=== PATIENT | male | born 1960 | race Caucasian/White ===

== ENCOUNTER 2017-06-14 08:13 | Emergency (ER) | payer MEDICARE, MEDICAID ==
[2017-06-14] MEDS ORDERED: Sodium Chloride 0.9% 500 ML IV ONE (08:45)
[2017-06-14] MEDS ORDERED: Sodium Chloride 0.9% 10 ML Syringe FLUSH PRN (08:46)
[2017-06-14] MEDS ORDERED: Labetalol 100 MG/20 ML MDV IVPUSH ONE ×3 (08:46→11:03)
[2017-06-14] MEDS ORDERED: Ondansetron 4 MG/2 ML SDV IVPUSH ONE (09:08)
[2017-06-14] MEDS ORDERED: Morphine 2 MG/ML Syringe IVPUSH ONE (09:08)
[2017-06-14] MEDS ORDERED: LORazepam 2 MG/ML MDV IVPUSH ONE (09:20)
--- NOTE | 2017-06-14 09:20 | EDM.PDOC ---
ED HPI GENERAL MEDICAL PROBLEM - General Chief Complaint: Abdominal Pain Stated Complaint: BODY ACHES Time Seen by Provider: 06/14/17 08:35 Source of Information: Reports: Patient, RN Notes Reviewed - History of Present Illness INITIAL COMMENTS - FREE TEXT/NARRATIVE: 56-year-old male comes in with generalized achiness, nausea, vomiting. He states there was a small amount of blood with his first emesis this morning and then more with the next 2 emesis. He states she's been taking a lot of Excedrin for the past couple of weeks, a couple of tabs about 4 times a day for generalized achiness. He was coughing a lot a couple of weeks ago when he first became ill. The cough now has become much less. The achiness continues. He does feel weak dizzy lightheaded. Does have history of borderline hypertension, not on medication for that. Smoke. Drinking occasional alcohol, "about twice a week ". Generalized Pain Score (Numeric/FACES): 10 - Related Data Allergies Allergy/AdvReac Type Severity Reaction Status Date / Time No Known Allergies Allergy Verified 06/14/17 08:26 Home Meds: Home Meds Ondansetron [Zofran ODT] 4 mg PO Q6H PRN #7 tab.dis 06/14/17 [Rx] QUEtiapine [SEROquel] 100 mg pe PO BID 06/14/17 [History] QUEtiapine [SEROquel] 200 mg PO QPM 06/14/17 [History] Past Medical History HEENT History: Reports: Impaired Vision Cardiovascular History: Reports: Hypertension - Past Surgical History HEENT Surgical History: Reports: Tonsillectomy Social & Family History - Tobacco Use Smoking Status *Q: Current Every Day Smoker Years of Tobacco use: 30 Packs/Tins Daily: 0.5 - Caffeine Use Caffeine Use: Reports: Coffee - Recreational Drug Use Recreational Drug Use: Yes Drug Use in Last 12 Months: Yes Recreational Drug Type: Reports: Marijuana/Hashish Recreational Drug Use Frequency: Binges ED ROS GENERAL - Review of Systems Review Of Systems: See Below Constitutional: Denies: Fever, Chills HEENT: Reports: Rhinitis, Sinus Problem, Throat Pain (No better) Respiratory: Denies: Shortness of Breath (Nasal and sinus congestion), Pleuritic Chest Pain Cardiovascular: Denies: Chest Pain GI/Abdominal: Reports: Abdominal Pain, Hematemesis (This morning), Nausea (Mild generalized achiness), Vomiting Musculoskeletal: Reports: Other (Generalized achiness) Skin: Denies: Rash Neurological: Reports: No Symptoms, Dizziness, Headache (Mild). Denies: Trouble Speaking, Difficulty Walking ED EXAM, GI/ABD - Physical Exam Exam: See Below General Appearance: Alert, No Apparent Distress Eyes: Bilateral: Normal Appearance Nose: Normal Inspection Throat/Mouth: Normal Inspection, Normal Oropharynx Neck: Supple Respiratory/Chest: No Respiratory Distress, Lungs Clear, Normal Breath Sounds Cardiovascular: Regular Rate, Rhythm Extremities: Normal Inspection, Normal Range of Motion Neurological: Alert, Oriented, No Motor/Sensory Deficits Skin Exam: Warm, Dry, Normal Color Course - Vital Signs Last Recorded V/S: Last Vital Signs Temp 98.4 F 06/14/17 08:21 Pulse 61 06/14/17 11:09 Resp 16 06/14/17 08:21 BP 146/98 H 06/14/17 11:17 Pulse Ox 98 06/14/17 08:21 - Orders/Labs/Meds Orders: Active Orders 24 hr Category Date Time Status Peripheral IV Care [RC] . DIRECTED Care 06/14/17 08:46 Active Peripheral IV Insertion Adult [OM.PC] Stat Oth 06/14/17 08:45 Ordered Labs: Laboratory Tests 06/14/17 06/14/17 Range/Units 08:35 08:35 WBC 10.62 H (4.23-9.07) K/mm3 RBC 5.22 (4.63-6.08) M/mm3 Hgb 14.8 (13.7-17.5) gm/L Hct 42.7 (40.1-51.0) % MCV 81.8 (79.0-92.2) fl MCH 28.4 (25.7-32.2) pg MCHC 34.7 (32.2-35.5) g/dl RDW Std Deviation 43.0 (35.1-43.9) fL Plt Count 297 (163-337) K/mm3 MPV 10.1 (9.4-12.3) fl Neutrophils % (Manual) 84 H (40-60) % Band Neutrophils % 0 (0-10) % Lymphocytes % (Manual) 10 L (20-40) % Atypical Lymphs % 0 % Monocytes % (Manual) 6 (2-10) % Eosinophils % (Manual) 0 L (0.8-7.0) % Basophils % (Manual) 0 L (0.2-1.2) Platelet Estimate Adequate RBC Morph Comment Normal Sodium 132 L (136-145) mEq/L Potassium 3.8 (3.5-5.1) mEq/L Chloride 99 (98-107) mEq/L Carbon Dioxide 20 L (21-32) mEq/L Anion Gap 16.8 H (5-15) BUN 17 (7-18) mg/dL Creatinine 1.3 (0.7-1.3) mg/dL Est Cr Clr Drug Dosing 73.77 mL/min Estimated GFR (MDRD) 57 (>60) mL/min BUN/Creatinine Ratio 13.1 L (14-18) Glucose 126 H (74-106) mg/dL Calcium 8.9 (8.5-10.1) mg/dL Total Bilirubin 0.4 (0.2-1.0) mg/dL AST 17 (15-37) U/L ALT 29 (16-63) U/L Alkaline Phosphatase 74 (46-116) U/L Total Protein 7.8 (6.4-8.2) g/dl Albumin 3.9 (3.4-5.0) g/dl Globulin 3.9 gm/dL Albumin/Globulin Ratio 1.0 (1-2) Acetaminophen 0 L (10-30) ug/mL Meds: Medications Discontinued Medications Generic Name Dose Route Start Last Admin Trade Name Freq PRN Reason Stop Dose Admin Famotidine 20 mg 06/14/17 10:54 06/14/17 11:25 Pepcid PO 06/14/17 10:55 20 mg ONETIME ONE Administration Sodium Chloride 500 mls @ 999 mls/hr 06/14/17 08:45 06/14/17 08:55 Normal Saline IV 06/14/17 09:15 999 mls/hr .BOLUS ONE Administration Labetalol HCl 20 mg 06/14/17 08:46 06/14/17 08:56 Normodyne IVPUSH 06/14/17 08:47 20 mg ONETIME ONE Administration Protocol Labetalol HCl 20 mg 06/14/17 09:42 06/14/17 09:57 Normodyne IVPUSH 06/14/17 09:43 20 mg ONETIME ONE Administration Protocol Labetalol HCl 20 mg 06/14/17 11:03 06/14/17 11:09 Normodyne IVPUSH 06/14/17 11:04 20 mg ONETIME ONE Administration Protocol Lorazepam 0.5 mg 06/14/17 09:20 06/14/17 10:36 Ativan IVPUSH 06/14/17 09:21 0.5 mg ONETIME ONE Administration Morphine Sulfate 4 mg 06/14/17 09:08 06/14/17 09:19 Morphine IVPUSH 06/14/17 09:09 4 mg ONETIME ONE Administration Ondansetron HCl 4 mg 06/14/17 09:08 06/14/17 09:18 Zofran IVPUSH 06/14/17 09:09 4 mg ONETIME ONE Administration Sodium Chloride 10 ml 06/14/17 08:46 06/14/17 09:00 Saline Flush FLUSH 10 ml ASDIRECTED PRN Administration Keep Vein Open - Re-Assessments/Exams Free Text/Narrative Re-Assessment/Exam: 06/14/17 13:41 Labs came back relatively okay. He does feel better after IV fluid and IV meds. Discharge instructions as documented Departure - Departure Time of Disposition: 11:32 Disposition: Home, Self-Care 01 Condition: Fair Clinical Impression: Hypertension Qualifiers: Hypertension type: essential hypertension Qualified Code(s): I10 - Essential ( primary) hypertension Hematemesis Qualifiers: Nausea presence: with nausea Qualified Code(s): K92.0 - Hematemesis - Discharge Information Prescriptions: Ondansetron [Zofran ODT] 4 mg PO Q6H PRN #7 tab.dis PRN Reason: Nausea/Vomiting Instructions: Hypertension, [id number] Referrals: PCP,None [Primary Care Provider] - Forms: ED Department Discharge Additional Instructions: Clear liquids until this evening, then very careful bland diet as tolerated. Pepcid(famotidine), available OTC, 20 mg twice daily for 2 weeks and thereafter as needed, Zofran if needed for any further nausea or vomiting. Lisinopril 20 mg daily for hypertension. Try check blood pressure readings as frequently as possible and keep a record of those for your next clinic appointment. Call [phone] for clinic appointment in about 7-10 days. Return to ED as needed. - My Orders Last 24 Hours: My Active Orders 06/14/17 08:45 Peripheral IV Insertion Adult [OM.PC] Stat 06/14/17 08:46 Peripheral IV Care [RC] . DIRECTED - Assessment/Plan Last 24 Hours: My Active Orders 06/14/17 08:45 Peripheral IV Insertion Adult [OM.PC] Stat 06/14/17 08:46 Peripheral IV Care [RC] . DIRECTED
[2017-06-14] MEDS ORDERED: Famotidine 20 MG Tab PO ONE (10:54)
== END 2017-06-14 12:09 | disposition home or self-care (01) ==
LOC: JD.ED 08:13
DX: K92.0 Hematemesis (principal); I10 Essential (primary) hypertension; F17.210 Nicotine dependence, cigarettes, uncomplicated
CPT/HCPCS: 36415; 80053; 85025; 96361; 96374; 96375; 96376; 99284; A9270; G0480; J2060; J2270; J2405; J7040; J7050